=== PATIENT | female | born 2000 | race Hispanic/Latino ===

== ENCOUNTER 2025-08-09 08:00 | Emergency (ER) | payer OTHER ==
[~2025-08-09] VITALS: Ht 157.5 cm; Wt 95.7 kg
[2025-08-09 08:02] VITALS: BP 124/83; PULSE 124; RESP 18; TEMP 98.2
[2025-08-09] MEDS ORDERED: NAPR-1505 PO (08:10)
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
[2025-08-09] MEDS: NAPROXEN 250 MG TAB PO ONE (08:14)
== END 2025-08-09 08:23 | disposition home or self-care (01) ==
LOC: EDH 08:00
DX: Z04.1 Encounter for examination and observation following transport accident (principal); V43.62XA Car passenger injured in collision with other type car in traffic accident, initial encounter; Y93.89 Activity, other specified; Y92.488 Other paved roadways as the place of occurrence of the external cause; Y99.8 Other external cause status
CPT/HCPCS: 99283